=== PATIENT | male | born 2000 | race Caucasian/White ===

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

== ENCOUNTER 2021-03-09 12:48 | Emergency (ER) | payer OTHER ==
[2021-03-09 13:08] VITALS: BP 117/84; PULSE 92
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
== END 2021-03-09 13:41 | disposition home or self-care (01) ==
LOC: VM.ED 12:48
DX: S01.511A Laceration without foreign body of lip, initial encounter (principal); S00.03XA Contusion of scalp, initial encounter; S10.93XA Contusion of unspecified part of neck, initial encounter; V89.2XXA Person injured in unspecified motor-vehicle accident, traffic, initial encounter; Y92.410 Unspecified street and highway as the place of occurrence of the external cause
CPT/HCPCS: 99282